=== PATIENT | male | born 1965 | race Caucasian/White ===

== ENCOUNTER 2018-10-16 20:46 | Emergency (ER) | payer BC ==
[2018-10-16] MEDS ORDERED: Ketorolac 30 MG/ML SDV IM ONE (21:20)
[2018-10-16] MEDS ORDERED: Ketorolac 60 MG/2 ML SDV IM ONE (21:30)
--- NOTE | 2018-10-17 08:28 | CR ---
DATE OF SERVICE: 10/16/18 CLINICAL DATA: Fell LEFT SHOULDER: No priors. There is diffuse osteopenia. 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 No acute abnormalities. No focal lytic or blastic bone lesions. [id number] [facility]
--- NOTE | 2018-10-17 11:48 | EDM.PDOC ---
ED HPI GENERAL MEDICAL PROBLEM - General Chief Complaint: General Stated Complaint: L SHOULDER INJURY Time Seen by Provider: 10/16/18 20:50 Source of Information: Reports: Patient History Limitations: Reports: No Limitations - History of Present Illness INITIAL COMMENTS - FREE TEXT/NARRATIVE: According to patient he was getting off his friends truck after supper tonight. He slipped on the ice on the ground. Tired to stop the all, and landed straight on his left shoulder. Since then he has not been able to move his left arm. Most of the pain patient points to over the shoulder joint anteriorly. Also has noted some tingling in his left medial 3 finger. No swelling or bruising of the shoulder. No obvious deformity noted by patient. No other complaints. Onset: Today, Sudden Onset Date: 10/16/18 Onset Time: 19:45 Duration: Constant Location: Reports: Upper Extremity, Left Quality: Reports: Ache Severity: Severe Associated Symptoms: Denies: Confusion, Chest Pain, Cough, Diaphoresis, Fever/ Chills, Headaches, Nausea/Vomiting, Rash, Seizure, Shortness of Breath, Syncope , Weakness Left Shoulder Pain Score (Numeric/FACES): 3 - Related Data Allergies Allergy/AdvReac Type Severity Reaction Status Date / Time No Known Allergies Allergy Verified 10/16/18 20:48 Home Meds: Home Meds Mesalamine [Delzicol] 400 mg PO DAILY 10/16/18 [History] hydroCHLOROthiazide [Hydrochlorothiazide] 25 mg PO DAILY 10/16/18 [History] Past Medical History HEENT History: Reports: Hard of Hearing, Impaired Vision Cardiovascular History: Reports: Hypertension Respiratory History: Reports: COPD Gastrointestinal History: Reports: Other (See Below) Other Gastrointestinal History: Ulcerative Colitis Musculoskeletal History: Reports: Fracture, Other (See Below) Other Musculoskeletal History: Ankle Fx "many years ago" - Past Surgical History GI Surgical History: Reports: Appendectomy, Polypectomy Social & Family History - Family History Family Medical History: Noncontributory - Tobacco Use Smoking Status *Q: Former Smoker Years of Tobacco use: 20 Packs/Tins Daily: 0.5 Used Tobacco, but Quit: Yes Month/Year Tobacco Last Used: 2015 Second Hand Smoke Exposure: No - Caffeine Use Caffeine Use: Reports: Coffee - Recreational Drug Use Recreational Drug Use: No ED ROS GENERAL - Review of Systems Review Of Systems: See Below Constitutional: Denies: Fever, Chills HEENT: Denies: Rhinitis, Throat Pain, Throat Swelling Respiratory: Denies: Cough, Sputum Cardiovascular: Denies: Chest Pain, Lightheadedness GI/Abdominal: Denies: Abdominal Pain, Nausea, Vomiting : Denies: Discharge, Dysuria Musculoskeletal: Reports: Joint Pain, Muscle Pain, Muscle Stiffness. Denies: Joint Swelling Skin: Denies: Bruising, Pruritis, Rash Neurological: Denies: Confusion, Dizziness, Headache, Numbness, Tingling ED EXAM, GENERAL - Physical Exam Exam: See Below Exam Limited By: No Limitations General Appearance: Alert, WD/WN, Moderate Distress Eye Exam: Bilateral Eye: EOMI, Proptosis Ears: Normal External Exam, Normal Canal, Hearing Grossly Normal, Normal TMs Ear Exam: Bilateral Ear: Auricle Normal, Canal Normal, TM normal Nose: Normal Inspection, Normal Mucosa, No Blood Throat/Mouth: Normal Inspection, Normal Lips, Normal Teeth, Normal Gums, Normal Oropharynx, Normal Voice, No Airway Compromise Head: Atraumatic, Normocephalic Neck: Normal Inspection, Supple, Non-Tender, Full Range of Motion Respiratory/Chest: No Respiratory Distress, Lungs Clear, Normal Breath Sounds, No Accessory Muscle Use, Chest Non-Tender Cardiovascular: Normal Peripheral Pulses, Regular Rate, Rhythm, No Edema, No Gallop, No JVD, No Murmur, No Rub Extremities: No Pedal Edema, Normal Capillary Refill, Other (Left shoulder: there is drooping of the left shoulder compared to the right. Also the arm is on the side of the chest. ON AORM, pt has about 30 degree abduction . Very painful with palpation around the shoulder. No crepitus felt. There is muscle spasm around the shoulder. LEft elbow normal ROM and good hand heart nurse.) Course - Vital Signs Text/Narrative:: X-ray Right shoulder appear normal other than increased space between the AC joint and the humeral head. Apparently pt has acute pain and muscle spasm limiting exam. Cannot rule out rotator cuff tear. Pt did receive toradol 60mg IM for pain. I have place left arm in arm sling, which did improve patient pain level and comfort. Motrin 800mg 3 times daily with food. Advised to stay in the arm sling and followup with his primary care provider when he is down in [facility]. Copies of X-ray given to patient on CD. Last Recorded V/S: Last Vital Signs Temp 99 F 10/16/18 20:55 Pulse 85 10/16/18 20:55 Resp 16 10/16/18 20:55 BP 154/81 H 10/16/18 20:55 Pulse Ox 100 10/16/18 20:55 - Orders/Labs/Meds Meds: Medications Discontinued Medications Generic Name Dose Route Start Last Admin Trade Name Fabián PRN Reason Stop Dose Admin Ketorolac Tromethamine 30 mg 10/16/18 21:20 Toradol IM 10/16/18 21:21 ONETIME ONE Ketorolac Tromethamine 60 mg 10/16/18 21:30 10/16/18 21:35 Toradol IM 10/16/18 21:31 60 mg ONETIME ONE Administration Departure - Departure Time of Disposition: 21:30 Disposition: Home, Self-Care 01 Condition: Fair Clinical Impression: Acute pain of left shoulder - Discharge Information *PRESCRIPTION DRUG MONITORING PROGRAM REVIEWED*: Not Applicable *COPY OF PRESCRIPTION DRUG MONITORING REPORT IN PATIENT LIBERTAD: Not Applicable Instructions: How to Use a Sling, [id number] Referrals: PCP,None [Primary Care Provider] - Forms: ED Department Discharge Additional Instructions: Keep applied sling in place at all times. Place pillow behind affected shoulder while sleeping to help decrease pain from movement of affected shoulder. May take 800mg Ibuprofen three times daily as needed for pain (next dose 7am); be sure to take with food to avoid possible stomach. Follow up with regular provider as soon as you return home. No activity with affected left arm until follow up with regular provider. Call with any questions. - Problem List & Annotations (1) Acute pain of left shoulder SNOMED Code(s): 98391157, [id number] Code(s): M25.512 - PAIN IN LEFT SHOULDER Status: Acute - Problem List Review Problem List Initiated/Reviewed/Updated: Yes - Assessment/Plan Assessment:: Acute left shoulder pain s/p fall Plan: X-ray Right shoulder appear normal other than increased space between the AC joint and the humeral head. Apparently pt has acute pain and muscle spasm limiting exam. Cannot rule out rotator cuff tear. Pt did receive toradol 60mg IM for pain. I have place left arm in arm sling, which did improve patient pain level and comfort. Motrin 800mg 3 times daily with food. Advised to stay in the arm sling and followup with his primary care provider when he is down in [facility]. Copies of X-ray given to patient on CD.
== END 2018-10-16 21:50 | disposition home or self-care (01) ==
LOC: LB.ED 20:46
DX: M25.512 Pain in left shoulder (principal); I10 Essential (primary) hypertension; Z87.891 Personal history of nicotine dependence; Z79.899 Other long term (current) drug therapy; W00.0XXA Fall on same level due to ice and snow, initial encounter
CPT/HCPCS: 73030; 96372; 99283; J1885